=== PATIENT | male | born 1965 | race African-American/Black ===

== ENCOUNTER 2024-07-28 06:24 | Day surgery (SDC) | payer OTHER, MEDICARE ==
[~2024-07-28] VITALS: Ht 180.3 cm; Wt 154.5 kg
[2024-07-28] MEDS ORDERED: PROPOFOL 1% 20 ML VIAL IVP ONE (06:49)
[2024-07-28] MEDS ORDERED: LIDOCAINE/PF 2% 5 ML VIAL ONE (06:49)
[2024-07-28] MEDS ORDERED: ALBUTEROL SULFATE HFA 90 MCG/PUFF 8 GM INHALER IH ONE (06:49)
[2024-07-28] MEDS ORDERED: ONDANSETRON HCL 4 MG/2 ML VIAL ONE (06:49)
[2024-07-28] MEDS ORDERED: ROCURONIUM BROMIDE 10 MG/ML 5 ML VIAL ONE (06:49)
[2024-07-28] MEDS ORDERED: GLYCOPYRROLATE 0.2 MG/ML VIAL ONE (06:49)
[2024-07-28] MEDS ORDERED: SUCCINYLCHOLINE CHLORIDE 20 MG/ML 10 ML VIAL ONE (06:49)
[2024-07-28] MEDS ORDERED: SUGAMMADEX SODIUM 200 MG/2 ML VIAL IVP ONE (06:49)
[2024-07-28] MEDS ORDERED: DEXAMETHASONE SOD PHOS 4 MG/ML VIAL ONE (06:49)
[2024-07-28 08:06] LABS: BASOPHILS % (AUTO) 0.3 % (0.0-2.0); EOSINOPHILS % (AUTO) 4.3 % (1.0-6.0); HEMATOCRIT 39.8 % (41-53); HEMOGLOBIN 13.3 g/dL (13.5-17.5); LYMPHOCYTES % (AUTO) 28.2 % (22.0-44.0); MEAN CORPUSCULAR HEMOGLOBIN 28.7 pg (26.0-34.0); MEAN CORPUSCULAR HGB CONC 33.5 G/dL (31.0-37.0); MEAN CORPUSCULAR VOLUME 86 fL (80-100); MONOCYTES # (AUTO) 0.9 K/uL (0.1-1.0); MONOCYTES % (AUTO) 12.1 % (2.0-9.0); NEUTROPHILS # (AUTO) 3.9 K/uL (1.8-7.7); NEUTROPHILS % (AUTO) 55.1 % (40.0-70.0); PLATELET COUNT (AUTO) 294 K/uL (150-450); RED BLOOD CELL COUNT(AUTO) 4.65 MIL/uL (4.50-5.90); RED CELL DISTRIBUTION WIDTH 14.5 % (11.5-14.5); WHITE BLOOD COUNT (AUTO) 7.1 K/uL (4.5-11.0)
[2024-07-28 08:14] LABS: ANION GAP 7 mmol/L (8-16); CALCIUM, TOTAL 8.6 mg/dL (8.8-10.5); CARBON DIOXIDE 30 mmol/L (22-29); CHLORIDE 105 mmol/L (98-107); CREATININE 1.07 mg/dL (0.60-1.30); GLOMERULAR FILTR. RATE CALC > 60 mL/min (>60); GLUCOSE,RANDOM 136 mg/dL (70-110); POTASSIUM 3.8 mmol/L (3.5-5.1); SODIUM SERUM 142 mmol/L (136-145); UREA NITROGEN, BLOOD 12 mg/dL (7-18)
[2024-07-28 08:17] LABS: PROTHROMBIN TIME 11.9 SEC (9.4-11.6)
[2024-07-28 08:19] LABS: ALANINE AMINOTRANSFERASE 44 U/L (12-78); ALBUMIN 3.3 g/dL (3.4-5.0); ALKALINE PHOSPHATASE 108 U/L (46-116); ASPARTATE AMINOTRANSFERASE 23 U/L (15-37); BILIRUBIN,TOTAL 0.3 mg/dL (0.1-1.0)
[2024-07-28] MEDS ORDERED: AMPICILLIN SODIUM 2 GM/NS 100 ML IV ONE (10:26)
[2024-07-28] MEDS: RINGERS SOLUTION,LACTATED 1,000 ML IV ONE (10:34)
[2024-07-28] MEDS ORDERED: AMLO-257 PO (10:44)
[2024-07-28] MEDS ORDERED: GEMF-77 PO (10:44)
[2024-07-28] MEDS ORDERED: ALBU18HF12 IH (10:44)
[2024-07-28] MEDS ORDERED: ASPI-1450 PO (10:44)
[2024-07-28] MEDS ORDERED: OMEP-148 PO (10:44)
[2024-07-28] MEDS ORDERED: CHOL25TA4 PO (10:44)
[2024-07-28] MEDS ORDERED: IBUP-1493 PO (10:44)
[2024-07-28] MEDS ORDERED: RIVA20TA PO (10:44)
[2024-07-28] MEDS ORDERED: CHL25 PO (10:44)
[2024-07-28] MEDS ORDERED: TRIA15CR49 TP (10:44)
[2024-07-28] MEDS ORDERED: FERR325T23 PO (10:44)
[2024-07-28] MEDS ORDERED: FURO40TA6 PO (10:44)
== END 2024-07-28 14:05 | disposition home or self-care (01) ==
LOC: SURGERY 06:24
PROVIDERS: ATTEND Dentist General Practice
DX: K02.9 Dental caries, unspecified (principal); K05.30 Chronic periodontitis, unspecified; K03.9 Disease of hard tissues of teeth, unspecified; F84.0 Autistic disorder; I10 Essential (primary) hypertension; J44.9 Chronic obstructive pulmonary disease, unspecified; K21.9 Gastro-esophageal reflux disease without esophagitis; E11.9 Type 2 diabetes mellitus without complications; F41.9 Anxiety disorder, unspecified; K59.00 Constipation, unspecified; Z79.01 Long term (current) use of anticoagulants; Z79.899 Other long term (current) drug therapy; Z88.8 Allergy status to other drugs, medicaments and biological substances; Z98.890 Other specified postprocedural states
CPT/HCPCS: 41899; 71045; 80053; 85025; 85610; 85730; 36415; 93005; J0290; J2704; J1100; J3490 ×4; J2405; J0330; J7120; J3535